=== PATIENT | female | born 1965 | race Two or more races ===

== ENCOUNTER 2019-10-17 23:19 | Emergency (ER) | payer SELFPAY ==
[~2019-10-17] VITALS: Ht 170.2 cm; Wt 70.8 kg
[2019-10-17 23:30] VITALS: Ht 170.2 cm; Wt 70.8 kg
[2019-10-18 02:12] VITALS: BP 142/80
== END 2019-10-18 02:12 | disposition home or self-care (01) ==
LOC: ED 23:19
DX: H66.91 Otitis media, unspecified, right ear (principal); H72.91 Unspecified perforation of tympanic membrane, right ear; I10 Essential (primary) hypertension; G61.0 Guillain-Barre syndrome
CPT/HCPCS: J1885